=== PATIENT | male | born 1995 | race Hispanic/Latino ===

== ENCOUNTER 2016-12-15 19:27 | Emergency (ER) | payer SELFPAY ==
[~2016-12-15] VITALS: Ht 180.3 cm; Wt 68.2 kg
[2016-12-15 19:44] VITALS: BP 108/65; PULSE 81; RESP 16; O2SAT 100
[2016-12-15 20:28] LABS: BASOPHILS % (AUTO) 0.1 % (0-3); EOSINOPHILS % (AUTO) 0.1 % (0-5); MONOCYTES % (AUTO) 8.4 % (4-12); Mean Corpuscular Hemoglobin 28.4 pg (27.0-35.0); Mean Corpuscular Volume 81.5 fL (81-100); NEUTROPHILS % (AUTO) 85.7 % (40-74); Platelet Count 228 bil/L (150-400)
[2016-12-15 20:46] LABS: Magnesium 1.8 mg/dL (1.6-2.6)
--- NOTE | 2016-12-15 21:44 | ED.REPORT ---
HPI-General Illness Date of Service Dec 15, 2016 ED Provider: Naresh Lloyd MD Pt is a healthy 21 year old male who presents to the ED with complaints of ongoing nausea and vomiting that started this morning. He reports that he ate at a new restaurant last night and felt sick this morning, he reports continuously vomiting, but denies noticing any blood or bilious material. Pt states that later in the day he began to experience body aches, fevers, chills and low back pain. Pt reports that he had a previous back injury several years ago, and this back pain that he is experiencing is similar to the intermittent pain he experiences from this injury. He has no other complaints. Nursing Notes Stated Complaint: FEVER, BACK PAIN, FROM URGENT CARE Chief Complaint: Male Abdominal Pain Nursing Notes Reviewed: Yes Allergies: Coded Allergies: No Known Allergies (Unverified , 03/05/16) Scheduled PRN Hydrocodone-Acetaminophen 5-325 mg (Hydrocodone-Acetaminophen 5-325 mg) 1 Each Tablet 1 TABLET PO Q4H PRN PRN For Pain Ondansetron ODT (Zofran ODT) 4 Mg Tablet 4 MG PO Q4H PRN PRN For Nausea General Time Seen by MD: 21:10 Chief Complaint Vomiting Hx Obtained From: Patient Arrived By: Walk-in Sudden in Onset?: Yes Onset Occurred: 5 - 8 hours ago Symptom Duration: Since onset Location: : Back Quality: Painful Severity: Current: Mild Severity: Maximum: Moderate Similar Sx Previous: Yes Past Medical History Past Medical History Previous back injury Past Surgical History denies Smoking History Never Smoker Social History Drug Use: Denies drug use Ambulatory Status Independent Review of Systems Full Review of Systems Constitutional: Reports: Fever, Denies: Chills, Malaise, Weakness - generalized Respiratory: Denies: Shortness of breath, Wheezing GI: Reports: Vomiting, Denies: Abdominal pain, Constipation, Diarrhea Male: Denies Dysuria, Denies Flank pain Musculoskeletal: Reports: Back pain Skin: Reports Diaphoresis Neurologic: Denies: Change LOC, Dizziness, Headache, Weakness Complete sys rev & neg: except as marked. Physical Exam Vital Signs Vital Signs Date Time Temp Pulse Resp B/P Pulse Ox O2 Delivery O2 Flow Rate FiO2 12/15/16 22:49 36.8 76 14 120/65 98 Room Air 12/15/16 19:44 36.4 81 16 108/65 100 Room Air Initial VS: Reviewed General/Constitutional: Well-developed, Well-nourished Head / Eyes: Atraumatic, Normocephalic, PERRL ENT: Mucous membranes moist, Conjunctiva normal, No scleral icterus Neck: Supple, Non-tender, Full range of motion Respiratory: Breath sounds normal, Clear to auscultation, No respiratory distress Cardiovascular: Regular rate & rhythm, Heart sounds normal, Intact distal pulses Abdomen / GI: Soft, Non-tender, No guarding, No rebound, No distention Skin: Warm, Dry, No cyanosis Neurologic: Alert, Oriented, Nonfocal Psychiatric: Mood/affect normal, Behavior normal, Normal thought content Interpretation & Diagnostics Lab Results Interpretation Result Diagram: 12/15/16201312/15/162013 Test 12/15/16 20:14 12/16/16 00:26 White Blood Count 8.7th/mm3 (3.8-10.1) Red Blood Count 4.97mil/mm3 (4.40-5.80) Hemoglobin 14.1g/dL (13.8-17.2) Hematocrit 40.5% (41.0-50.0) Mean Corpuscular Volume 81.5fL (81-100) Mean Corpuscular Hemoglobin 28.4pg (27.0-35.0) Mean Corpuscular Hemoglobin Concent 34.8% (32.0-37.0) Red Cell Distribution Width 13.1% (12.3-15.4) Platelet Count 228bil/L (150-400) Neutrophils (%) (Auto) 85.7% (40-74) Lymphocytes (%) (Auto) 5.5% (14-46) Monocytes (%) (Auto) 8.4% (4-12) Eosinophils (%) (Auto) 0.1% (0-5) Basophils (%) (Auto) 0.1% (0-3) Sodium Level 134mEq/L (134-144) Potassium Level 3.9mEq/L (3.5-5.2) Chloride Level 96mEq/L (97-108) Carbon Dioxide Level 21mmol/L (18-29) Blood Urea Nitrogen 14mg/dL (6-20) Creatinine 0.80mg/dL (0.76-1.27) Estimat Glomerular Filtration Rate 127mL/min (>59) Glucose Level 104mg/dL (60-99) Calcium Level 10.0mg/dL (8.5-10.1) Magnesium Level 1.8mg/dL (1.6-2.6) Total Bilirubin 0.7mg/dL (0.0-1.2) Aspartate Amino Transf (AST/SGOT) 24U/L (0-50) Alanine Aminotransferase (ALT/SGPT) 16U/L (0-44) Alkaline Phosphatase 50U/L (25-150) Total Protein 7.7g/dL (6.4-8.4) Albumin 4.7g/dL (3.4-5.0) Lipase 16U/L (13-60) Hold Brownlee Top Tube Received (Received) Hold Urine Received (Received) Re-Eval/Medical Decision Med Decision/Clinical Course 20-year-old male presenting complaining of one episode of nonbloody nonbilious vomiting this morning. It is resolved. Reports some low back pain which is chronic. Vital signs stable. Abdomen is soft nontender. No CVA tenderness. Urine no evidence of infection or blood. Labs are unremarkable. Patient felt much better. Likely viral. Given prescription for Zofran with return precautions. Source of Hx: Old records Time of Eval: 22:19 Re-Evaluation/Progress Note: Pt is rechecked and informed of his diagnosis and the plan to discharge him at this time. He understands and agree, all questions are addressed. Counseled Regarding: Diagnosis, Lab results, When/why to return to ED Discharge & Departure Primary Impression: Vomiting Additional Impression: Back pain Disposition: Home Discharge Condition All VS Reviewed: Yes Condition: Stable Patient Instructions: Acute Low Back Pain (ED) Additional Instructions: Take the Zofran to control your nausea, and the pain medication to alleviate your back pain. Follow up with your primary care provider for possible referral to physial therapy to address your back pain. Increase your fluid intake. Return to the emergency department with any increased vomiting, abdominal pain or any other new or worsening symptoms. Referrals: [facility] (PCP) Jn Metzger MD Scribe Attestation Portions of this note were transcribed by Dr. Thorne. I, Lisy Bustillos personally performed the history, physical exam and medical decision-making; I reviewed and confirmed the accuracy of the information in the transcribed note. Signed by: Carissa Sands, 12/15 4379 copies to: Jn Metzger MD, Ben M MD Dec 15, 2016 21:44 LAMONTE BUSTILLOS Dec 15, 2016 21:52
[2016-12-15] MEDS ORDERED: ONDA4TAB9 PO (21:53)
[2016-12-15] MEDS ORDERED: HYDR-4003 PO (21:53)
[2016-12-15] MEDS ORDERED: Ondansetron 2 mg/mL 2 mL Inj IVPUSH ONE (21:55)
[2016-12-15 22:49] VITALS: BP 120/65; PULSE 76; RESP 14; O2SAT 98
== END 2016-12-15 22:20 | disposition home or self-care (01) ==
LOC: SED 19:27
DX: R11.10 Vomiting, unspecified (principal); M54.5 Low back pain; R50.9 Fever, unspecified; Z87.828 Personal history of other (healed) physical injury and trauma
CPT/HCPCS: 36415; 80053; 81002; 83690; 83735; 85025; 96374; 99284; J1885